=== PATIENT | female | born 1975 | race Caucasian/White ===

== ENCOUNTER → 2016-09-20 | Outpatient (CLI) | payer OTHER ==
--- NOTE | 2016-09-20 17:34 | REP ---
Left hand series: Four views. History: Pain in the left hand. Findings: Four views of the left hand demonstrate normal bones, joints, and soft tissues. No fracture or subluxation is seen. Impression: Negative left hand radiographs. Signed by Angel Whyte MD 09/20/2016 05:25 P
== END ==
LOC: M LRY 17:02
PROVIDERS: ATTEND Physician Assistant
DX: M79.642 Pain in left hand (principal)

== ENCOUNTER 2021-07-14 16:32 | Emergency (ER) | payer OTHER ==
[~2021-07-14] VITALS: Ht 172.7 cm; Wt 127.3 kg
[2021-07-14 16:32] VITALS: BP 223/113
== END 2021-07-14 19:12 | disposition left against medical advice (07) ==
LOC: M ED 16:32
DX: Z53.29 Procedure and treatment not carried out because of patient's decision for other reasons (principal)

== ENCOUNTER 2024-08-31 15:28 | Emergency (ER) | payer OTHER ==
[~2024-08-31] VITALS: Ht 167.6 cm; Wt 137.3 kg
[2024-08-31 18:01] VITALS: TEMP 97.5
[2024-08-31] MEDS: ASPIRIN 81MG CHEW TABLET PO ONE (18:20)
[2024-08-31] MEDS: hydroCHLOROthiazide 12.5 MG CAPSULE PO ONE (18:20)
[2024-08-31] MEDS: amLODIPine 5 MG TAB PO ONE (18:21)
[2024-08-31 18:36] LABS: BASO # 0.1 10^3/uL (0.0-0.2); BASO % 0.6 % (0.0-1.0); EOS # 0.6 10^3/uL (0.0-0.5); EOS % 5.4 % (0.0-3.0); HEMATOCRIT 31.1 % (36.0-47.0); HEMOGLOBIN 8.6 g/dl (12.0-15.5); LYMPH # 2.8 10^3/uL (1.5-5.0); LYMPH % 24.5 % (24.0-44.0); MEAN CORPUSCULAR HEMOGLOBIN 20.4 pg (27.0-33.0); MEAN CORPUSCULAR HGB CONC 27.7 g/dl (32.0-36.5); MEAN CORPUSCULAR VOLUME 73.7 fl (80.0-96.0); MONO % 8.9 % (2.0-8.0); NEUTROPHILS # 6.9 10^3/uL (1.5-8.5); PLATELET COUNT, AUTOMATED 215 10^3/uL (150-450); RED BLOOD COUNT 4.22 10^6/uL (4.00-5.40); WHITE BLOOD COUNT 11.5 10^3/uL (4.0-10.0)
[2024-08-31 18:59] LABS: ALBUMIN 3.5 G/DL (3.2-5.2); ALKALINE PHOSPHATASE 131 U/L (35-104); ALT/SGPT 21 U/L (7.0-40); AST/SGOT 22 U/L (<34); BILIRUBIN,DIRECT 0.1 MG/DL (<0.4); BILIRUBIN,TOTAL 0.5 MG/DL (0.3-1.2); BLOOD UREA NITROGEN 14 MG/DL (9-23); CARBON DIOXIDE LEVEL 21 MMOL/L (20-31); CHLORIDE LEVEL 108 MMOL/L (98-107); CK-MB VALUE MASS 1.1 NG/ML (<3.6); CREATININE FOR GFR 0.51 MG/DL (0.55-1.30); GLOMERULAR FILTRATION RATE > 60.0 (>51); GLUCOSE, FASTING 94 MG/DL (60-100); POTASSIUM SERUM 4.1 MMOL/L (3.5-5.1); SODIUM LEVEL 141 MMOL/L (136-145); TOTAL PROTEIN 6.8 G/DL (5.7-8.2)
[2024-08-31] MEDS ORDERED: HYDR12.55 PO (19:00)
[2024-08-31] MEDS ORDERED: NORV5TAB PO (19:00)
[2024-08-31 19:07] LABS: CPK CREATINE PHOSPHOKINASE 171 U/L (34-145); MB/CK RELATIVE INDEX 0.64 (< OR =4)
[2024-08-31] MEDS: NIFEdipine 10 MG CAP PO ONE (19:50)
[2024-08-31 20:40] VITALS: BP 183/87; O2SAT 99
== END 2024-08-31 20:54 | disposition home or self-care (01) ==
LOC: M ED 15:28
DX: S80.01XA Contusion of right knee, initial encounter (principal); W00.0XXA Fall on same level due to ice and snow, initial encounter; I10 Essential (primary) hypertension; Z91.040 Latex allergy status; Z79.899 Other long term (current) drug therapy; Y92.009 Unspecified place in unspecified non-institutional (private) residence as the place of occurrence of the external cause; Y93.89 Activity, other specified; Y99.9 Unspecified external cause status